=== PATIENT | female | born 1990 | race African-American/Black ===

== ENCOUNTER 2019-05-03 19:19 | Emergency (ER) | payer OTHER ==
[2019-05-03] MEDS ORDERED: IBUPROFEN 800 MG TABLET PO ONE (20:59)
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
[2019-05-03 22:08] VITALS: BP 148/88
== END 2019-05-03 22:24 | disposition home or self-care (01) ==
LOC: ER 19:19
DX: M54.6 Pain in thoracic spine (principal); M54.5 Low back pain; V49.50XA Passenger injured in collision with unspecified motor vehicles in traffic accident, initial encounter; Y93.89 Activity, other specified; F17.200 Nicotine dependence, unspecified, uncomplicated
CPT/HCPCS: 72070; 72110; 99283